=== PATIENT | male | born 1985 | race Caucasian/White ===

== ENCOUNTER 2017-12-26 00:43 | Emergency (ER) | payer SELFPAY ==
[~2017-12-26] VITALS: Ht 162.6 cm; Wt 86.2 kg
[2017-12-26 00:48] VITALS: BP 147/90
--- NOTE | 2017-12-26 00:50 | NUR ---
TO BED # 9 AMBULATORY , REPORT GIVEN TO KIM RN
[2017-12-26 00:51] VITALS: BP 147/90
[2017-12-26] MEDS ORDERED: NACL 0.9% 500 ML IV ONE ×2 (00:53)
[2017-12-26] MEDS ORDERED: KETOROLAC 30 MG/ML VIAL IVP ONE (00:55)
[2017-12-26] MEDS ORDERED: ONDANSETRON 4 MG/2 ML VIAL IVP ONE (00:55)
--- NOTE | 2017-12-26 00:55 | NUR ---
PATIENT IS A 32 Y/O MALE WHO PRESENTS TO THE ED C/O ABD PAIN. PT STATES THAT IT STARTED X3 DAYS AGO. PT REPORTS 7/10 ACHING UPPER ABD PAIN THAT RADIATES TO R FLANK. PT DENIES CP, SOB, REPORTS NAUSEA/VOMITING DENIES DIARRHEA. PT AWAKE AND ALERT, RR EVEN/UNLABORED. PT REPOSITIONED FOR COMFORT, BED IN LOWEST POSITION. ER MD DR. BEDOYA NOTIFIED. WILL CONTINUE TO MONITOR.
[2017-12-26] MEDS ORDERED: DICYCLOMINE HCL LIQUID 10 MG/5 ML UDC PO ONE (01:25)
[2017-12-26] MEDS ORDERED: LIDOCAINE VISCOUS 2% 20 ML UDC PO ONE (01:25)
[2017-12-26] MEDS ORDERED: ALUMINUM HYD/MAG/SIMETHICONE 30 ML UDC PO ONE (01:25)
--- NOTE | 2017-12-26 02:05 | NUR ---
Patient discharged with v/s stable. Written and verbal after care instructions given and explained. Patient alert, oriented and verbalized understanding of instructions. Ambulatory with steady gait. All questions addressed prior to discharge. ID band removed. Patient advised to follow up with PMD. Rx of OMEPRAZOLE AND ZOFRAN ODT given. Patient educated on indication of medication including possible reaction and side effects. Opportunity to ask questions provided and answered.
== END 2017-12-26 02:05 | disposition home or self-care (01) ==
LOC: MED 00:43
DX: K21.9 Gastro-esophageal reflux disease without esophagitis (principal); R03.0 Elevated blood-pressure reading, without diagnosis of hypertension
CPT/HCPCS: 96374; 96375; 99284; J1885; J2405